=== PATIENT | female | born 1980 | race Caucasian/White ===

== ENCOUNTER 2019-08-21 10:36 | Emergency (ER) | payer MEDICAID ==
[~2019-08-21] VITALS: Ht 162.6 cm; Wt 65.9 kg
[2019-08-21 10:43] VITALS: BP 126/76; Ht 162.6 cm; Wt 65.9 kg
[2019-08-21] MEDS ORDERED: KEFLEX500 MG PO (10:57)
== END 2019-08-21 11:15 | disposition home or self-care (01) ==
LOC: D.ER 10:36
DX: J02.0 Streptococcal pharyngitis (principal); F17.200 Nicotine dependence, unspecified, uncomplicated

== ENCOUNTER 2020-04-23 01:37 | Emergency (ER) | payer OTHER ==
[~2020-04-23] VITALS: Ht 162.6 cm; Wt 63.5 kg
[~2020-04-23 01:37] MED LIST: KEFLEX500 MG PO
[2020-04-23 01:42] VITALS: Ht 162.6 cm; Wt 63.5 kg
[2020-04-23 02:02] LABS: HEMOGLOBIN 13.3 g/dL (12-16); LYMPHOCYTES 21.5 % (15-50); MCH 31.1 pg (26.0-34.0); MCHC 33.3 g/dL (31.0-37.0); MCV 93.7 fL (80.0-100.0); MEAN PLATELET VOLUME 9.9 fL (7.4-10.4); NEUTROPHILS 67.4 % (40-80); PLATELET COUNT 323 10x3/uL (130-400); RBC 4.27 10x6/uL (4.00-5.40); RDW 12.8 % (11.5-14.5); WBC 12.9 10x3/uL (4.8-10.8)
[2020-04-23 02:07] LABS: ANION GAP 9.7 mmol/L (8-16); CALCIUM 8.3 mg/dL (8.5-10.1); CARBON DIOXIDE 28.6 mmol/L (21.0-32.0); POTASSIUM - SERUM 3.3 mmol/L (3.5-5.1)
[2020-04-23 02:08] LABS: HCG URINE NEGATIVE (NEGATIVE)
[2020-04-23 02:13] LABS: ALBUMIN 3.3 g/dL (3.4-5.0); BILIRUBIN - TOTAL 0.21 mg/dL (0.2-1.3); PROTEIN - SERUM 6.6 g/dL (6.4-8.2)
[2020-04-23 02:14] LABS: UDS - AMPHET POSITIVE QUAL (NEGATIVE); UDS - BARB NEGATIVE QUAL (NEGATIVE); UDS - BENZO NEGATIVE QUAL (NEGATIVE); UDS - COCAINE NEGATIVE QUAL (NEGATIVE); UDS - OPIATE NEGATIVE QUAL (NEGATIVE); UDS - PCP NEGATIVE QUAL (NEGATIVE); UDS - THC POSITIVE QUAL (NEGATIVE)
[2020-04-23 02:23] LABS: NITRITE POSITIVE (NEGATIVE); SPECIFIC GRAVITY 1.025 (1.005-1.020)
[2020-04-23 02:24] LABS: BILIRUBIN NEGATIVE (NEGATIVE); GLUCOSE NEGATIVE (NEGATIVE); KETONE NEGATIVE (NEGATIVE); UROBILINOGEN NORMAL (NORMAL)
[2020-04-23 02:25] LABS: BACTERIA MANY /hpf (NEGATIVE); EPITHELIAL CELLS 0-5 /hpf (0-5); RED CELLS - URINE 0-5 /hpf (0-5)
[2020-04-23] MEDS ORDERED: ULTRAM50 MG PO (02:28)
[2020-04-23] MEDS ORDERED: MACROBID100 MG PO (02:28)
[2020-04-23 03:52] VITALS: BP 125/78
== END 2020-04-23 03:53 | disposition home or self-care (01) ==
LOC: D.ER 01:37
PROVIDERS: Family Medicine
DX: S20.219A Contusion of unspecified front wall of thorax, initial encounter (principal); N39.0 Urinary tract infection, site not specified; V89.2XXA Person injured in unspecified motor-vehicle accident, traffic, initial encounter; Y93.9 Activity, unspecified; Y92.9 Unspecified place or not applicable; R07.9 Chest pain, unspecified